=== PATIENT | male | born 1955 | race African-American/Black ===

== ENCOUNTER 2022-09-30 16:17 | Emergency (ER) | payer BC ==
--- OUTSIDE RECORDS SUMMARY | 2022-09-30 16:21 | XMS REPORT | Continuity of Care Document ---
:1955 Author Organization Formerly [facility] t Address [address] [place] [address] [place] [id number] Care Team Providers Name Role Phone Pcp, Patient Does Not Have A Primary Care Physician +[id number] PEGGY LOPES Attending Clinician Unavailable Evan Glass MD Attending Clinician EVAN GLASS Attending Clinician Unavailable Doctor Unassigned, [place] Attending Clinician Unavailable HUSSEIN ALLEN Attending Clinician Unavailable Evan Glass MD Admitting Clinician EVAN GLASS Admitting Clinician Unavailable Payers Payer Name Policy Type Policy Number Effective Date Expiration Date S ource Problems Condition Condition Condition Status Onset Resolution Last Treating Co mments Source Name Details Category Date Date Treatment Clinician Date Class 2 Class 2 Disease Active Univers obesity obesity 06-11 ity of 00:00: [place] 00 Medical Branch Hyperglyce Hyperglyce Disease Active U nivers alan due to alan due to 06-11 it y of type 2 type 2 00:00: [place] diabetes diabetes 00 Medica l mellitus mellitus Branch Mixed Mixed Disease Active Univers hyperlipid hyperlipid 06-11 it y of emia emia 00:00: [place] 00 Medical Branch Type 2 Type 2 Disease Active Univers diabetes diabetes 06-11 ity of mellitus mellitus 00:00: [place] without without 00 Medical complicati complicati Br anch on on Essential Essential Disease Active Uni vers hypertensi hypertensi 8-17 it y of on on 00:00: [place] [facility] [place] PORTER PORTER Disease Active Univers (obstructi (obstructi 17 it y of ve sleep ve sleep 00:00: [place] apnea) apnea) 00 Medical Branch Elevated Elevated Disease Active Unive rs calcitonin calcitonin 11-13 it y of level level 00:00: [place] [facility] Branch Vitamin D Vitamin D Disease Active Uni vers deficiency deficiency 11-13 it y of 00:00: [place] [facility] Hyperparat Hyperparat Disease Active U nivers hyroidism hyroidism 11-13 ity of 00:00: [place] 00 [facility] Hypercalce Hypercalce Disease Active U nivers alan alan 11-13 ity of 00:00: [place] [facility] Allergies, Adverse Reactions, Alerts Allergy Allergy Status Severity Reaction(s) Onset Inactive Treating Comm ents Source Name Type Date Date Clinician NO KNOWN Drug Active Univers ALLERGIE Class ity of S [facility] Social History Social Habit Start Date Stop Date Quantity Comments Source Alcohol intake 2022-06-11 2022-06-11 Current drinker of Un iversity of 00:00:00 00:00:00 alcohol (finding) [facility] 2022-06-11 2022-06-11 occasional Universit y of 00:00:00 00:00:00 [facility] Exposure to 2022-05-26 2022-06-05 Not sure [facility] SARS-CoV-2 00:00:00 14:21:00 [facility] (event) [place] Sex Ass[birth year] Universit y of 00:00:00 00:00:00 [facility] Smoking Status Start Date Stop Date Source Never smoked tobacco [facility] [place] [place] Medications Ordered Filled Start Stop Current Ordering Indication Dosage Frequency Signature Comments Components Source Medication Medication Date Date Medication? Clinician (SIG) Name Name water for 2022- No PRN, Univers irrigation 06-11 Starting ity of irrigation 19:13: 20:26 on Fri s solution 00 :40 06/11/22 at Medic al 1313, Branch Until Fri06/11/22 at 1426, Routine, Intra-op simethicone 2022-0 2022- No PRN, Unive rs (GAS RELIEF 06-11 Starting ity of (SIMETHICON 19:12: 20:26 on Tu Rogelio as E)) 40 00 :40 06/11/22 at Medical mg/0.6 mL 1312, Branch drops Until Fri06/11/22 at 1426, Routine, Intra-op tirzepatide Yes 7.5mg inject 7.5 Univers (MOUNJARO) 1-31 mg under ity o f 7.5 mg/0.5 14:53: the skin Rogelio as mL PnIj 01 weekly. Medical Branch dapaglifloz Yes Take by Uni vers in-metformi 06-11 mouth. ity of n (XIGDUO 14:53: [place] XR) Medical 10-1,000 mg Branch TBph olmesartan Yes 40mg Take 40 mg U nivers 40 mg 06-11 by mouth ity of tablet 14:53: in the [place] morning. Medical Branch rosuvastati Yes 10mg Take 10 mg Univers n 10 mg 06-11 by mouth ity of tablet 14:53: at [place] bedtime. Medical Branch dapaglifloz Yes 10mg Take 10 mg Univers in 06-11 by mouth ity of (FARXIGA) 14:53: daily. [place] 10 mg 01 Medical tablet Branch FA/mv,Ca,ir Yes Take 2 Univ ers on,min/lyco 06-11 TAB-CAP/M2 it y of pene/lut 14:53: by mouth [place] (MULTIVITAL 01 daily. Medica l ORAL) Branch tirzepatide Yes 7.5mg inject 7.5 Univers (MOUNJARO) 1-31 mg under ity o f 7.5 mg/0.5 14:53: the skin Rogelio as mL PnIj 01 weekly. Medical Branch dapaglifloz Yes Take by Uni vers in-metformi 06-11 mouth. ity of n (XIGDUO 14:53: [place] XR) Medical 10-1,000 mg Branch TBph olmesartan Yes 40mg Take 40 mg U nivers 40 mg 06-11 by mouth ity of tablet 14:53: in the [place] morning. Medical Branch rosuvastati Yes 10mg Take 10 mg Univers n 10 mg 06-11 by mouth ity of tablet 14:53: at [place] bedtime. Medical Branch dapaglifloz Yes 10mg Take 10 mg Univers in 06-11 by mouth ity of (FARXIGA) 14:53: daily. [place] 10 mg Medical tablet Branch FA/mv,Ca,ir Yes Take 2 Univ ers on,min/lyco 1-31 TAB-CAP/M2 it y of pene/lut 14:53: by mouth [place] (MULTIVITAL daily. Medica l ORAL) Branch tirzepatide Yes 7.5mg inject 7.5 Univers (MOUNJARO) 1-31 mg under ity o f 7.5 mg/0.5 14:53: the skin Rogelio as mL PnIj 01 weekly. Medical Branch dapaglifloz Yes Take by Uni vers in-metformi 06-11 mouth. ity of n (XIGDUO 14:53: [place] XR) Medical 10-1,000 mg Branch TBph olmesartan Yes 40mg Take 40 mg U nivers 40 mg 06-11 by mouth ity of tablet 14:53: in the morning. Medical Branch rosuvastati Yes 10mg Take 10 mg Univers n 10 mg 06-11 by mouth ity of tablet 14:53: at [place] bedtime. Medical Branch dapaglifloz Yes 10mg Take 10 mg Univers in 06-11 by mouth ity of (FARXIGA) 14:53: daily. [place] 10 mg Medical tablet Branch FA/mv,Ca,ir Yes Take 2 Univ ers on,min/lyco 1-31 TAB-CAP/M2 it y of pene/lut 14:53: by mouth [place] (MULTIVITAL 01 daily. Medica l ORAL) Branch ergocalcife Yes [id number] Take one Univers rol, 7-05 capsule ity of vitamin d2, 00:00: [place] (VITAMIN 00 week for 4 Medic al D2) 50,000 weeks then Bra nch unit change to capsule one capsule once a month ergocalcife Yes [id number] Take one Univers rol, 7-05 capsule ity of vitamin d2, 00:00: [place] (VITAMIN 00 week for 4 Medic al D2) 50,000 weeks then Bra nch unit change to capsule one capsule once a month ergocalcife Yes [id number] Take one Univers rol, 7-05 capsule ity of vitamin d2, 00:00: [place] (VITAMIN 00 week for 4 Medic al D2) 50,000 weeks then Bra nch unit change to capsule one capsule once a month JARDIANCE Yes 1{tbl} Take 1 Univ ers 25 mg Tab 5-06 tablet by ity o f 00:00: mouth [place] 00 daily. Medical Branch JARDIANCE Yes 1{tbl} Take 1 Univ ers 25 mg Tab 5-06 tablet by ity o f 00:00: mouth [place] 00 daily. Medical Branch JARDIANCE Yes 1{tbl} Take 1 Univ ers 25 mg Tab 5-06 tablet by ity o f 00:00: mouth [place] 00 daily. Medical Branch TRULICITY Yes Univers 0.75 mg/0.5 4-27 ity of mL PnIj 00:00: [place] 00 Medical Branch losartan-hy 2017-0 Yes 1{tbl} Take 1 Un micah drochloroth 4-27 tablet by ity of iazide 00:00: mouth in [place] 100-12.5 mg 00 the Medical per tablet morning. [facility] TRULICITY Yes Univers 0.75 mg/0.5 4-27 ity of mL PnIj 00:00: [place] 00 Medical Branch losartan-hy 2017-0 Yes 1{tbl} Take 1 Un micah drochloroth 4-27 tablet by ity of iazide 00:00: mouth in [place] 100-12.5 mg 00 the Medical per tablet morning. [facility] TRULICITY Yes Univers 0.75 mg/0.5 4-27 ity of mL PnIj 00:00: [place] 00 Medical Branch losartan-hy 2017-0 Yes 1{tbl} Take 1 Un micah drochloroth 4-27 tablet by ity of iazide 00:00: mouth in [place] 100-12.5 mg 00 the Medical per tablet morning. Branc h Vital Signs Vital Name Observation Time Observation Value Comments Source Systolic blood 2022-06-11 20:35:00 104 mm[Hg] Univer sity of pressure [place] [facility] [place] Diastolic blood 2022-06-11 20:35:00 79 mm[Hg] Unive rsity of pressure [facility] Heart rate 2022-06-11 20:35:00 76 /min Universi ty of [place] [facility] [place] Respiratory rate 2022-06-11 20:35:00 28 /min Univ ersity of [facility] Oxygen saturation in 2022-06-11 20:35:00 97 /min University of Arterial blood by [place] [employer] [facility] Pulse oximetry Branch Body temperature 2022-06-11 20:08:00 36.11 Coleen Univ ersity of [place] [facility] [place] Body height 2022-06-05 20:00:00 185.4 cm Universi ty of [place] [facility] [place] Body weight 2022-06-05 20:00:00 127.007 kg Universi ty of [place] [facility] BMI 2022-06-05 20:00:00 36.94 kg/m2 Universi ty of [place] [facility] [place] Oxygen saturation in 2022-06-11 18:49:00 99 /min University of Arterial blood by [place] [employer] [facility] Pulse oximetry Branch Systolic blood 2022-06-11 18:49:00 129 mm[Hg] Univer sity of pressure [facility] Diastolic blood 2022-06-11 18:49:00 85 mm[Hg] Unive rsity of [facility] Heart rate 2022-06-11 18:49:00 81 /min Universi ty of [place] [facility] [place] Body temperature 2022-06-11 18:49:00 36.56 Coleen Univ ersity of [facility] Branch Respiratory rate 2022-06-11 18:49:00 16 /min Univ ersity of [place] [facility] [place] Body height 2022-06-05 20:00:00 185.4 cm Universi ty of [place] [facility] Body weight 2022-06-05 20:00:00 127.007 kg Universi ty of [place] [facility] BMI 2022-06-05 20:00:00 36.94 kg/m2 Universi ty of [place] [facility] Procedures Procedure Date / Time Performing Clinician Source Performed COLONOSCOPY 2022-06-11 19:33:00 Evan Glass [facility] POCT GLUCOSE (AUTOMATED) 2022-06-11 18:44:[address] [facility] [place] [place] POCT GLUCOSE (AUTOMATED) 2022-06-11 18:44:[address] [facility] [place] [place] COLONOSCOPY (ENDO) 2022-06-11 18:36:59 Peter Leija [facility] COLONOSCOPY (ENDO) 2022-06-11 18:36:59 Peter Leija [facility] PATIENT QUESTIONNAIRE 2022-06-11 06:01:00 Doctor Unassigned, No [facility] Name [facility] EXTERNAL PROVIDER 2022-05-20 06:01:00 Doctor Unassigned, No [facility] Name [facility] EXTERNAL PROVIDER 2022-05-20 06:01:00 Doctor Unassigned, No [facility] RECORDS Name [facility] Encounters Start End Encounter Admission Attending Care Care Encounter Source Date/Time Date/Time Type Type Clinicians Facility Department ID 2021-01-31 Outpatient NANETTE LOPESSE [facility] [id number] 15:47:25 PEGGY [facility] 2022-06-11 2022-06-11 [facility] [id number] Univers 12:12:00 14:50:00 Encounter Evan mena [id number] ity [facility] [id number] [id number] [facility] 071 Branch 2022-06-11 2022-06-11 Outpatient R [facility] [id number] Univers 12:12:00 14:50:00 EVAN Mena o f [facility] 2022-06-11 2022-06-11 Surgery [facility] [id number] Univers 12:50:00 13:31:00 Evan mena [id number] ity [facility] [id number] [id number] [facility] 020 Branch 2022-06-11 2022-06-11 Orders Doctor GEOVANI [id number] Univers 00:00:00 00:00:00 Only Unassigned, EDUARDO [id number] ity of [place] [facility] [id number] Rog[place]io as [id number] [address] 2020-11-17 2020-11-17 Outpatient ALEJANDRO, BL MED [address] [facility] 07:30:00 23:59:00 HUSSEIN Results Test Description Test Time Test Comments Results Result Comments Source POCT GLUCOSE (AUTOMATED) 2022-06-11 18:54:27 Test Item Value Reference Range Interpretation Comme nts POCT GLU (test code = [id number]) 81 mg/dL 70-110 Lab Interpretation (test code = 90157-5) Normal [facility] [place]2022-06-11 18:54:27 Test Item Value Reference Range Interpretation Comments POCT GLU (test code = [id number]) 81 mg/dL 70-110 Lab Interpretation (test code = Normal 05561-9) [facility] [place]
[2022-09-30] MEDS ORDERED: NA CHLORIDE 0.9% 1,000 ML ONE ×2 (17:25→20:43)
[2022-09-30] MEDS ORDERED: NA CHLORIDE 0.9% 100 ML ONE (17:26)
[2022-09-30] MEDS ORDERED: PIPERACIL/TAZO 3.375 GM VIAL IV ONE (17:26)
--- NOTE | 2022-09-30 17:56 | ER ---
Nurse's Notes [facility] Name: Harlan Oliver Jr Age: 67 yrs Sex: Male : 1955 Arrival Date: 09/30/2022 Time: 16:17 Bed 16 Private MD: Diagnosis: Acute cholecystitis Presentation: 09/30 16:46 Chief complaint: Chief complaint: Patient states: sent by Dr. Joseph for aa5 cholecystectomy tomorrow. Pt currently denies pain. 16:46 Acuity: JOSE ELIAS 3 aa5 16:46 Onset of symptoms was September 2022. aa5 16:46 Method Of Arrival: Ambulatory aa5 16:46 Coronavirus screen: At this time, the client does not indicate any symptoms associated aa5 with coronavirus-19. Ebola Screen: Patient denies travel to an Ebola-affected area in the 21 days before illness onset. Initial Sepsis Screen: Does the patient meet any 2 criteria? No. Patient's initial sepsis screen is negative. Does the patient have a suspected source of infection? No. Patient's initial sepsis screen is negative. Risk Assessment: Do you want to hurt yourself or someone else? Patient reports no desire to harm self or others. Historical: - Allergies: 16:46 No Known Allergies; aa5 - PMHx: 16:46 Hypertensive disorder; Diabetes mellitus; Hypercholesterolemia; aa5 - Immunization history:: Adult Immunizations unknown. - Social history:: Smoking status: Patient denies any tobacco usage or history of. - Family history:: not pertinent. Screenin:00 [facility] ED Fall Risk Assessment (Adult) Score/Fall Risk Level 0 - 2 = Low Risk. Abuse eh3 screen: Denies threats or abuse. Denies injuries from another. Nutritional screening: No deficits noted. Tuberculosis screening: No symptoms or risk factors identified. Assessment: 17:00 General: Appears in no apparent distress. comfortable, Behavior is calm, cooperative, eh3 appropriate for age. Pain: Denies pain. Neuro: Level of Consciousness is awake, alert, obeys commands, Oriented to person, place, time, situation. Cardiovascular: Capillary refill < 3 seconds Patient's skin is warm and dry. Respiratory: Airway is patent Respiratory effort is even, unlabored, Respiratory pattern is regular, symmetrical. GI: Abdomen is round non-distended, Bowel sounds present X 4 quads. Abd is soft and non tender X 4 quads. : No signs and/or symptoms were reported regarding the genitourinary system. EENT: No signs and/or symptoms were reported regarding the EENT system. Derm: Skin is pink, warm \T\ dry. Musculoskeletal: Circulation, motion, and sensation intact. 18:00 Reassessment: Patient appears in no apparent distress at this time. Patient and/or eh3 family updated on plan of care and expected duration. Pain level reassessed. Patient is alert, oriented x 3, equal unlabored respirations, skin warm/dry/pink. 19:00 Reassessment: Patient appears in no apparent distress at this time. Patient and/or eh3 family updated on plan of care and expected duration. Pain level reassessed. Patient is alert, oriented x 3, equal unlabored respirations, skin warm/dry/pink. 20:00 Reassessment: Patient appears in no apparent distress at this time. Patient and/or eh3 family updated on plan of care and expected duration. Pain level reassessed. Patient is alert, oriented x 3, equal unlabored respirations, skin warm/dry/pink. 21:00 Reassessment: Patient appears in no apparent distress at this time. Patient and/or eh3 family updated on plan of care and expected duration. Pain level reassessed. Patient is alert, oriented x 3, equal unlabored respirations, skin warm/dry/pink. Vital Signs: 16:46 BP 112 / 73; Pulse 87; Resp 16 S; Temp 100(O); Pulse Ox 97% on R/A; Weight 124.74 kg aa5 (R); Height 6 ft. 1 in. (R); 17:00 BP 107 / 62; Pulse 82; Resp 16; Pulse Ox 97% on R/A; eh3 18:00 BP 108 / 55; Pulse 85; Resp 16; Pulse Ox 99% on R/A; eh3 19:00 BP 112 / 76; Pulse 91; Resp 16; Pulse Ox 99% on R/A; eh3 20:00 BP 111 / 82; Pulse 91; Resp 16; Pulse Ox 96% on R/A; eh3 21:00 BP 120 / 75; Pulse 87; Resp 16; Pulse Ox 98% on R/A; eh3 16:46 Body Mass Index 36.28 (124.74 kg, 185.42 cm) aa5 ED Course: 16:29 Patient arrived in ED. am2 16:30 Roberto Bernard MD is Attending Physician. rt 16:46 Arm band placed on. aa5 16:58 Triage completed. aa5 17:00 Patient has correct armband on for positive identification. Bed in low position. Call eh3 light in reach. Side rails up X2. Adult w/ patient. Pulse ox on. NIBP on. Door closed. Noise minimized. Lights dimmed. Warm blanket given. 17:18 Shannan Graham, LARRY is Primary Nurse. eh3 17:55 Wilmar Varma MD is Hospitalizing Provider. rt 18:02 Vargas Reyes MD is Hospitalizing Provider. la1 18:20 Inserted saline lock: 20 gauge in left antecubital area, using aseptic technique. Blood eh3 collected. 19:15 Chay Richards PA is PHCP. [facility] 19:[address] contact to [facility]. Spoke with Moira and she stated that they [facility] didn't have any GI doctors available in [place], so they will look into trying to get the patient to [facility]. 20:15 Moira called back from [facility], to let us know pt is partially [facility] approved but they want to wait on a covid result for complete approval. 21:18 Moira Andrade RN called us back for an update on the covid result ( negative), after [facility] receiving results pt was given hospital and physician approval. 21:40 Report given to Nakita Pardo RN. eh3 21:49 [facility] was called for transfer. [facility] 22:05 EMS arrived. [facility] Administered Medications: 18:20 Drug: Piperacillin-Tazobactam IVPB 3.375 grams Route: IVPB; Infused Over: 60 mins; eh3 Site: left antecubital; 19:20 Follow up: Response: No adverse reaction; IV Status: Completed infusion; IV Intake: eh3 100ml 18:20 Drug: NS 0.9% IV 1000 ml Route: IV; Rate: 1 bolus; Site: left antecubital; eh3 21:06 Follow up: IV Status: Completed infusion; IV Intake: 1000ml eh3 19:43 Drug: morphine IVP or IV 4 mg Route: IVP; Infused Over: 4 mins; Site: left antecubital; eh3 21:06 Follow up: Response: No adverse reaction eh3 19:43 Drug: Ondansetron IVP 4 mg Route: IVP; Site: left antecubital; eh3 21:06 Follow up: Response: No adverse reaction eh3 20:27 CANCELLED (Duplicate Order): NS 0.45 % with KCl IV 20 mEq/L 1000 ml IV at 125 ml/hr oncejmm 21:00 Drug: NS 0.9% IV 1000 ml Route: IV; Rate: 125 ml/hr; Site: left antecubital; 3 Intake: 19:20 IV: 100ml; Total: 100ml. eh3 21:06 IV: 1000ml; Total: 1100ml. eh3 Outcome: 17:55 Decision to Hospitalize by Provider. rt 20:50 ER care complete, transfer ordered by . [facility] 22:10 Patient left the ED. Signatures: Stephanie Pardo RN Chay Limon PA PA Vee Trivedi RN RN aa5 Mario Pino, STUD DRIVER-C STUD DRIVER-Cla1 Karli Guzman amShannan Nguyen RN RN eh3 Roberto Bernard MD MD rt [facility] Corrections: (The following items were deleted from the chart) 16:58 16:46 Chief complaint: aa5 aa5 20:38 19:[address] [facility]. Stated they didn't have any GI doctors [facility] available in [place], so they will look into trying to get the patient to [place] [id number] 20:38 20:15 Moira called back from [facility], to let us know its partially [facility] approved but they wanted to wait on a covid result for complete approval [facility] 22:12 21:18 Moira contacted was back for covid results which came back negative, and to [facility] give Coordinator and physician approval [facility] 22:14 21:50 EMS was called for transfer [place] [id number] 22:27 21:40 EMS was called for transfer [place] [id number] 22:27 21:50 EMS arrived [place] [id number]
--- NOTE | 2022-09-30 17:56 | EDPHYS ---
Physician Documentation [facility] Name: Harlan Oliver Jr Age: 67 yrs Sex: Male : 1955 Arrival Date: 09/30/2022 Time: 16:17 Bed 16 Private MD: ED Physician Roberto Bernard HPI: 09/30 17:31 This 67 yrs old Black Male presents to ER via Ambulatory with complaints of Abdominal rt Pain. 17:31 Patient presents to the ED with abdominal pain. Patient was seen in the ED at [facility] yesterday, is found have a cholecystitis, left when they recommended the patient be transferred to [place]. Patient with the Dr. Lopes's office today who sent him here to be admitted under medical service for cholecystectomy in the morning. He states that he received pain medicines this morning, is currently comfortable. Denies other acute complaints at this time. Symptoms are moderate in severity, no other aggravating or alleviating factors. Historical: - Allergies: 16:46 No Known Allergies; aa5 - PMHx: 16:46 Hypertensive disorder; Diabetes mellitus; Hypercholesterolemia; aa5 - Immunization history:: Adult Immunizations unknown. - Social history:: Smoking status: Patient denies any tobacco usage or history of. - Family history:: not pertinent. ROS: 17:31 Constitutional: Negative for fever, chills, and weight loss, Cardiovascular: Negative rt for chest pain, palpitations, and edema, Respiratory: Negative for shortness of breath, cough, wheezing, and pleuritic chest pain, MS/Extremity: Negative for injury and deformity, Skin: Negative for injury, rash, and discoloration, Neuro: Negative for headache, weakness, numbness, tingling, and seizure, Psych: Negative for depression, anxiety, suicide ideation, homicidal ideation, and hallucinations. 17:31 Abdomen/GI: Positive for abdominal pain, nausea. Exam: 17:31 Constitutional: This is a well developed, well nourished patient who is awake, alert, rt and in no acute distress. Head/Face: Normocephalic, atraumatic. Chest/axilla: Normal chest wall appearance and motion. Nontender with no deformity. No lesions are appreciated. Cardiovascular: Regular rate and rhythm with a normal S1 and S2. No gallops, murmurs, or rubs. Normal PMI, no JVD. No pulse deficits. Respiratory: Lungs have equal breath sounds bilaterally, clear to auscultation and percussion. No rales, rhonchi or wheezes noted. No increased work of breathing, no retractions or nasal flaring. Abdomen/GI: Soft, non-tender, with normal bowel sounds. No distension or tympany. No guarding or rebound. No evidence of tenderness throughout. Skin: Warm, dry with normal turgor. Normal color with no rashes, no lesions, and no evidence of cellulitis. MS/ Extremity: Pulses equal, no cyanosis. Neurovascular intact. Full, normal range of motion. Neuro: Awake and alert, GCS 15, oriented to person, place, time, and situation. Cranial nerves II-XII grossly intact. Motor strength 5/5 in all extremities. Sensory grossly intact. Cerebellar exam normal. Normal gait. Psych: Awake, alert, with orientation to person, place and time. Behavior, mood, and affect are within normal limits. Vital Signs: 16:46 BP 112 / 73; Pulse 87; Resp 16 S; Temp 100(O); Pulse Ox 97% on R/A; Weight 124.74 kg aa5 (R); Height 6 ft. 1 in. (R); 17:00 BP 107 / 62; Pulse 82; Resp 16; Pulse Ox 97% on R/A; eh3 18:00 BP 108 / 55; Pulse 85; Resp 16; Pulse Ox 99% on R/A; eh3 19:00 BP 112 / 76; Pulse 91; Resp 16; Pulse Ox 99% on R/A; eh3 20:00 BP 111 / 82; Pulse 91; Resp 16; Pulse Ox 96% on R/A; eh3 21:00 BP 120 / 75; Pulse 87; Resp 16; Pulse Ox 98% on R/A; eh3 16:46 Body Mass Index 36.28 (124.74 kg, 185.42 cm) aa5 MDM: 16:47 Patient medically screened. rt 17:31 Differential diagnosis: Cholecystitis, biliary disease. Data reviewed: vital signs, rt nurses notes, lab test result(s). Consideration of Admission/Observation Patient was admitted/placed on observation. Management of patient was discussed with the following: Hospitalist: Agrees to admit. Sack Filler: Spoke with Dr. Joseph, states a repeat imaging is not indicated. I considered the following discharge prescriptions or medication management in the emergency department Medications were administered in the Emergency Department. See MAR. Test considered but Not performed: CT: CT and MRI performed less than 24 hours ago, repeat is not needed. External Records Reviewed: Outside ED record: Reviewed the radiology reads, labs from the [place] [facility]. Care significantly affected by the following chronic conditions: Diabetes. Counseling: I had a detailed discussion with the patient and/or guardian regarding: the historical points, exam findings, and any diagnostic results supporting the discharge/admit diagnosis, lab results, the need for further work-up and treatment in the hospital. 19:19 ED course: Hospitalist service (myself) was consulted for admission, LFTs ended up la1 coming back significantly elevated when compared to earlier today. I called Dr. Joseph back with general surgery who agrees that patient will need ERCP for further assessment given his findings on labs and imaging. We unfortunately do not have there capability of performing ERCP currently so recommendation for transfer was made. I discussed this with patient and family who are amendable with this plan. . 09/30 16:56 Order name: CBC with Diff; Complete Time: 18:59 rt 09/30 16:56 Order name: CMP; Complete Time: 18:54 rt 09/30 16:56 Order name: Lipase; Complete Time: 18:54 rt 09/30 19:53 Order name: Lactate w/ 2H reflex if indic. jmm 09/30 20:22 Order name: SARS-COV-2 Antigen Rapid; Complete Time: 21:22 eh3 Administered Medications: 18:20 Drug: Piperacillin-Tazobactam IVPB 3.375 grams Route: IVPB; Infused Over: 60 mins; eh3 Site: left antecubital; 19:20 Follow up: Response: No adverse reaction; IV Status: Completed infusion; IV Intake: eh3 100ml 18:20 Drug: NS 0.9% IV 1000 ml Route: IV; Rate: 1 bolus; Site: left antecubital; 3 21:06 Follow up: IV Status: Completed infusion; IV Intake: 1000ml [facility] 19:43 Drug: morphine IVP or IV 4 mg Route: IVP; Infused Over: 4 mins; Site: left antecubital; 3 21:06 Follow up: Response: No adverse reaction 3 19:43 Drug: Ondansetron IVP 4 mg Route: IVP; Site: left antecubital; eh3 21:06 Follow up: Response: No adverse reaction eh3 20:27 CANCELLED (Duplicate Order): NS 0.45 % with KCl IV 20 mEq/L 1000 ml IV at 125 ml/hr oncejmm 21:00 Drug: NS 0.9% IV 1000 ml Route: IV; Rate: 125 ml/hr; Site: left antecubital; eh3 Disposition Summary: 09/30/22 20:50 Transfer Ordered Transfer Location: [facility] Reason: Higher level of care [facility] Condition: Stable(09/30/22 20:50) jm Problem: new(09/30/22 20:50) [facility] Symptoms: are unchanged(09/30/22 20:50) [facility] Accepting Physician: Internal Medicine(09/30/22 22:10) lynnette Diagnosis - Acute cholecystitis(09/30/22 20:50) [facility] Forms: - Medication Reconciliation Form [facility] - SBAR form [facility] Addendum: 10/02/2022 09:30 Co-signature as Attending Physician, Roberto Bernard MD I reviewed the patient's care r t provided by the Advanced Practice Provider and agree with the diagnosis and treatment plan. Signatures: Dispatcher [employer] Stephanie Browning RN RN kl Mickail, Joel, PA PA jmm Calderon, Audri, RN RN aa5 Mario Pino, [employer]-Cla1 Shannan Graham RN RN eh3 Roberto Bernard MD MD rt Corrections: (The following items were deleted from the chart) 09/30 18:02 17:55 Wilmar Varma rt la1 19:16 17:55 Observation rt la1 19:16 17:55 Telemetry/MedSurg (observation) rt la1 19:16 17:55 Stable rt la1 19:16 17:55 new rt la1 19:16 17:55 have improved rt la1 19:16 17:55 Standard rt la1 19:16 17:55 rt la1 19:16 17:55 Acute cholecystitis rt la1 19:16 18:02 Vargas Reyes la1 la1 20:27 20:24 NS 0.45 % with KCl IV 20 mEq/L 1000 ml IV at 125 ml/hr once ordered. gayle araujo 22:10 20:50 Internal Medicine gayle kl
[2022-09-30 18:50] LABS: Absolute Lymphocytes (CBC) 1.2 K/uL (0.7-4.9); Albumin 3.7 g/dL (3.4-5.0); Hematocrit 44.5 % (39.6-49.0); Lymphocytes % 13.6 % (15.3-44.8); MCV 86.2 fL (80-100); Protein, Total 7.5 g/dL (6.4-8.2); RBC Red Blood Cell Count 5.16 M/uL (4.33-5.43)
[2022-09-30] MEDS ORDERED: MORPHINE 4 MG/ML SYR ONE (19:42)
[2022-09-30] MEDS ORDERED: ONDANSETRON 4 MG/2 ML VIAL ONE (19:42)
[2022-09-30 21:04] LABS: SARS-CoV-2 Antigen Rapid Res Negative (Negative)
[2022-09-30 23:14] VITALS: TEMP 100
[2022-09-30 23:20] VITALS: BP 120/75; O2SAT 98
== END 2022-09-30 22:10 | disposition short-term general hospital (02) ==
LOC: ER 16:17
DX: K81.0 Acute cholecystitis (principal); Z20.822 Contact with and (suspected) exposure to COVID-19
CPT/HCPCS: 85025; 36415; 83605; 83690; 80053; 87811; J2543; J2405; J7030 ×2